=== PATIENT | female | born 1990 | race Caucasian/White ===

== ENCOUNTER 2018-11-19 12:14 | Emergency (ER) | payer OTHER, MEDICAID ==
[~2018-11-19] VITALS: Ht 157.5 cm; Wt 52.2 kg
[~2018-11-19 12:14] MED LIST: ULTRAM50 MG PO
[2018-11-19 13:02] LABS: ABSOLUTE BASOPHILS 0.1 thou/uL (0.0-0.2); ABSOLUTE LYMPHOCYTES 1.3 thou/uL (0.8-5.3); ABSOLUTE MONOCYTES 0.8 thou/uL (0.0-1.2); ABSOLUTE NEUTROPHILS 5.9 thou/uL (1.6-8.1); BASOPHILS 0.7 %; EOSINOPHILS 0.4 %; HEMATOCRIT 41.9 % (37.0-47.0); HEMOGLOBIN 14.2 gm/dL (12.0-15.0); LYMPHOCYTES 15.8 %; MCH 35.3 pg (26.0-34.0); MCV 103.9 fL (80.0-100.0); MONOCYTES 9.9 %; MPV 8.6 fl. (7.2-11.1); NUCLEATED RBCS 0 /100WBC; PLATELET COUNT* 161 thou/uL (150-400); POLYS 73.2 %; RBC 4.03 mil/uL (4.20-5.00); RDW-CV 12.6 % (10.5-14.5)
[2018-11-19 13:08] LABS: ANION GAP 11 mmol/L (7-16); BUN 8 mg/dL (7-18); CALCIUM 8.8 mg/dL (8.5-10.1); CHLORIDE 100 mmol/L (98-107); CO2 27 mmol/L (21-32); CREATININE 0.7 mg/dL (0.6-1.3); GLUCOSE 85 mg/dL (70-99); POTASSIUM 3.5 mmol/L (3.5-5.1); SODIUM 138 mmol/L (136-145)
[2018-11-19 13:17] LABS: ALBUMIN 4.1 g/dL (3.4-5.0); ALKALINE PHOSPHATASE 40 U/L (46-116); SGOT 10 U/L (15-37); SGPT 21 U/L (30-65); TOTAL BILIRUBIN 0.8 mg/dL (<0.1-1.0); TOTAL PROTEIN 7.7 g/dL (6.4-8.2); TROPONIN-I LEVEL <0.06 ng/mL (<0.06)
[2018-11-19] MEDS ORDERED: ZPAK PO (14:09)
[2018-11-19] MEDS ORDERED: PROMETH-CODEIN 65 ML PO (14:09)
[2018-11-19] MEDS ORDERED: MEDROLDOSEPACK PO (14:09)
[2018-11-19] MEDS ORDERED: VENTOLIN HFA 1818 GM INH (14:09)
[2018-11-19 14:31] LABS: URINE BILIRUBIN NEGATIVE (Negative); URINE BLOOD NEGATIVE (Negative); URINE CLARITY CLEAR; URINE COLOR STRAW; URINE GLUCOSE-RANDOM NEGATIVE (Negative); URINE KETONES NEGATIVE (Negative); URINE LEUKOCYTES-REFLEX NEGATIVE (Negative); URINE NITRITE-REFLEX NEGATIVE (Negative); URINE PROTEIN NEGATIVE (Negative); URINE SPECIFIC GRAVITY <= 1.005 (1.005-1.030); URINE UROBILINOGEN 0.2 E.U./dl (0.2-1.0)
[2018-11-19 14:38] LABS: AMP/METHAMP Negative (Negative); BARBITURATES Negative (Negative); BENZODIAZEPINES Negative (Negative); COCAINE Negative (Negative); METHADONE Negative (Negative); OPIATES Negative (Negative); PCP Negative (Negative); THC POSITIVE (Negative)
[2018-11-19 14:57] VITALS: BP 106/59
--- NOTE | 2018-11-20 14:33 | EKG ---
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
== END 2018-11-19 14:58 | disposition home or self-care (01) ==
LOC: M.ERS 12:14
PROVIDERS: Nurse Practitioner Family
DX: J20.9 Acute bronchitis, unspecified (principal); M94.0 Chondrocostal junction syndrome [Tietze]; F17.210 Nicotine dependence, cigarettes, uncomplicated

== ENCOUNTER 2018-11-25 19:59 | Emergency (ER) | payer OTHER, MEDICAID ==
[~2018-11-25] VITALS: Ht 157.5 cm; Wt 52.2 kg
[~2018-11-25 19:59] MED LIST changes: +MEDROLDOSEPACK PO; +PROMETH-CODEIN 65 ML PO; +VENTOLIN HFA 1818 GM INH; +ZPAK PO
[2018-11-25 20:39] LABS: URINE BILIRUBIN NEGATIVE (Negative); URINE BLOOD NEGATIVE (Negative); URINE CLARITY CLEAR; URINE COLOR YELLOW; URINE GLUCOSE-RANDOM NEGATIVE (Negative); URINE KETONES NEGATIVE (Negative); URINE LEUKOCYTES-REFLEX NEGATIVE (Negative); URINE NITRITE-REFLEX NEGATIVE (Negative); URINE PROTEIN NEGATIVE (Negative); URINE SPECIFIC GRAVITY <= 1.005 (1.005-1.030); URINE UROBILINOGEN 0.2 E.U./dl (0.2-1.0)
[2018-11-25 20:45] LABS: ABSOLUTE BASOPHILS 0.1 thou/uL (0.0-0.2); ABSOLUTE EOSINOPHILS 0.1 thou/uL (0.0-0.7); ABSOLUTE MONOCYTES 1.1 thou/uL (0.0-1.2); ABSOLUTE NEUTROPHILS 8.4 thou/uL (1.6-8.1); BASOPHILS 0.9 %; EOSINOPHILS 0.6 %; HEMATOCRIT 40.7 % (37.0-47.0); HEMOGLOBIN 13.6 gm/dL (12.0-15.0); LYMPHOCYTES 23.5 %; MCH 34.5 pg (26.0-34.0); MCHC 33.5 g/dL (28.0-37.0); MONOCYTES 8.5 %; MPV 8.7 fl. (7.2-11.1); NUCLEATED RBCS 0 /100WBC; PLATELET COUNT* 200 thou/uL (150-400); POLYS 66.5 %; RBC 3.95 mil/uL (4.20-5.00); RDW-CV 12.5 % (10.5-14.5); WBC 12.6 thou/uL (4.0-11.0)
[2018-11-25 21:02] LABS: CALCIUM 8.9 mg/dL (8.5-10.1); CREATININE 0.8 mg/dL (0.6-1.3); POTASSIUM 3.4 mmol/L (3.5-5.1)
[2018-11-25 21:07] LABS: ALBUMIN 3.8 g/dL (3.4-5.0); TOTAL BILIRUBIN 0.6 mg/dL (<0.1-1.0); TOTAL PROTEIN 7.7 g/dL (6.4-8.2)
[2018-11-25] MEDS ORDERED: FLAGYL500 M1 PO (22:02)
[2018-11-25] MEDS ORDERED: IBU600 MG PO (22:03)
[2018-11-25 23:13] VITALS: BP 118/82
== END 2018-11-25 23:16 | disposition home or self-care (01) ==
LOC: M.ERS 19:59
PROVIDERS: Nurse Practitioner Family
DX: K65.9 Peritonitis, unspecified (principal); N94.89 Other specified conditions associated with female genital organs and menstrual cycle; F17.200 Nicotine dependence, unspecified, uncomplicated; Z91.040 Latex allergy status; Z91.048 Other nonmedicinal substance allergy status

== ENCOUNTER 2019-01-09 20:33 | Emergency (ER) | payer OTHER, MEDICAID ==
[~2019-01-09] VITALS: Ht 157.5 cm; Wt 47.6 kg
[~2019-01-09 20:33] MED LIST changes: +FLAGYL500 M1 PO; +IBU600 MG PO
[2019-01-09 20:48] VITALS: BP 106/62
[2019-01-09] MEDS ORDERED: AMOXICILLIN 50500 MG PO (21:07)
== END 2019-01-09 21:15 | disposition home or self-care (01) ==
LOC: M.ERS 20:33
DX: J02.9 Acute pharyngitis, unspecified (principal); R59.0 Localized enlarged lymph nodes; F17.200 Nicotine dependence, unspecified, uncomplicated; Z91.040 Latex allergy status; Z91.048 Other nonmedicinal substance allergy status

== ENCOUNTER 2021-02-02 10:23 | Emergency (ER) | payer OTHER ==
[~2021-02-02] VITALS: Ht 160 cm; Wt 54.4 kg
[~2021-02-02 10:23] MED LIST changes: +AMOXICILLIN 50500 MG PO
[2021-02-02] MEDS ORDERED: FLEXERIL PO (11:25)
[2021-02-02 11:35] VITALS: BP 126/72
== END 2021-02-02 11:35 | disposition home or self-care (01) ==
LOC: M.ERS 10:23
DX: M79.10 Myalgia, unspecified site (principal); Z20.822 Contact with and (suspected) exposure to COVID-19; R53.83 Other fatigue; R09.81 Nasal congestion; Z88.8 Allergy status to other drugs, medicaments and biological substances; Z91.040 Latex allergy status